=== PATIENT | female | born 1965 | race Caucasian/White ===

== ENCOUNTER 2019-07-16 21:42 | Emergency (ER) | payer MEDICAID ==
[~2019-07-16] VITALS: Ht 162.6 cm; Wt 54.5 kg
[2019-07-16] MEDS ORDERED: LIDOcaine 1% W/epiNEPHrine 1:200,000 10ml vial IJ ONE (22:25)
--- NOTE | 2019-07-16 22:34 | NUR ---
CHAITANYA LEVY AT BEDSIDE FOR I&D.
[2019-07-16] MEDS ORDERED: DOXY100C43 PO (22:50)
[2019-07-16] MEDS ORDERED: CEPH250T PO (22:50)
[2019-07-16 23:39] VITALS: BP 131/87
== END 2019-07-16 23:40 | disposition home or self-care (01) ==
LOC: ER 21:43
DX: L02.01 Cutaneous abscess of face (principal)
CPT/HCPCS: 10060; 87070; 87077; 87186; 99283

== ENCOUNTER 2019-08-15 21:33 | Emergency (ER) | payer MEDICAID ==
[~2019-08-15] VITALS: Ht 162.6 cm; Wt 53.0 kg
[2019-08-15 21:38] VITALS: BP 125/74
[2019-08-15] MEDS ORDERED: CLIN150C2 PO (23:00)
[2019-08-15] MEDS ORDERED: L. R1CAP4 PO (23:00)
== END 2019-08-15 23:07 | disposition home or self-care (01) ==
LOC: ER 21:34
DX: M27.2 Inflammatory conditions of jaws (principal); Z88.2 Allergy status to sulfonamides; Z88.5 Allergy status to narcotic agent; Z79.899 Other long term (current) drug therapy
CPT/HCPCS: 99284

== ENCOUNTER 2019-08-25 22:12 | Emergency (ER) | payer MEDICAID ==
[~2019-08-25] VITALS: Ht 165.1 cm; Wt 54.0 kg
[~2019-08-25 22:12] MED LIST: L. R1CAP4 PO
[2019-08-25 22:15] VITALS: BP 117/72
[2019-08-25] MEDS ORDERED: CefTRIAXone 1000mg IM Kit (w/lidocaine diluent) IM ONE (23:25)
[2019-08-25] MEDS ORDERED: CEPH500C5 PO (23:27)
[2019-08-25] MEDS ORDERED: DOXY-11 PO (23:27)
== END 2019-08-25 23:52 | disposition home or self-care (01) ==
LOC: ER 22:12
DX: L03.211 Cellulitis of face (principal); Z88.2 Allergy status to sulfonamides; Z88.8 Allergy status to other drugs, medicaments and biological substances; Z79.899 Other long term (current) drug therapy
CPT/HCPCS: 96372; 99283; J0696